=== PATIENT | female | born 1960 | race Caucasian/White ===

== ENCOUNTER → 2018-06-09 | Day surgery (SDC) | payer BC ==
--- NOTE | 2018-06-09 12:52 | RAD REPORT ---
EXAM DESCRIPTION: US - Guided FNA Non Breast - 06/09/2018 11:11 am CLINICAL HISTORY: ICD E04.2 COMPARISON: June 2017 ultrasound TECHNIQUE: The risks, benefits and alternatives to procedure were explained to the patient and infor med consent obtained. Under sonographic guidance the 4 cm dominant nodule within the left lobe of the thyroid gland was loc alized. Skin and subcutaneous were tissues anesthetized with lidocaine. Multiple 25 gauge needle passes were obtained into the nodule. The specimens were given to pathology. The patient experienced no immediate complication. IMPRESSION: Ultrasound-guided fine-needle aspiration of the dominant nodule within the left lobe of the thyroid gland.
== END | disposition home or self-care (01) ==
LOC: FNA 09:41
PROVIDERS: ATTEND Otolaryngology
PROC: 0G9G3ZX Drainage of Left Thyroid Gland Lobe, Percutaneous Approach, Diagnostic (ICD-10-PCS; principal; 2018-06-09)
PROC: BG44ZZZ Ultrasonography of Thyroid Gland (ICD-10-PCS; 2018-06-09)
DX: E04.2 Nontoxic multinodular goiter (principal)
CPT/HCPCS: 88161